=== PATIENT | male | born 1990 | race African-American/Black ===

== ENCOUNTER 2020-11-21 10:12 | Outpatient (CLI) | payer BC, SELFPAY ==
[2020-11-21 11:02] LABS: Alanine Aminotransferase 14 U/L (4-50); Albumin Level 4.6 g/dL (3.5-5.1); Alkaline Phosphatase 39 U/L (38-126); Anion Gap 5 mmol/L (8-16); Aspartate Amino Transferase 27 U/L (17-59); Bilirubin,Total 1.5 mg/dL (0.2-1.3); Blood Urea Nitrogen 13 mg/dL (9-20); Calcium 9.5 mg/dL (8.4-10.2); Carbon Dioxide 32 mmol/L (22-30); Chloride 105 mmol/L (98-107); Cholesterol 204 mg/dL (0-200); Estimated Glomerular Filt Rate > 60; Glucose 95 mg/dL (75-110); HDL Direct 66 mg/dL; Potassium 5.1 mmol/L (3.4-5.0); Sodium 142 mmol/L (137-145); Triglycerides 76 mg/dL (<150)
[2020-11-21 11:13] LABS: LDL Cholesterol Direct 81 mg/dL
[2020-11-21 11:33] LABS: Thyroid Stimulating Hormone 0.987 uIU/mL (0.465-4.680)
[2020-11-25 00:49] LABS: Testosterone Total 607 ng/dL (250-1100)
== END 2020-11-21 10:13 | disposition home or self-care (01) ==
PROVIDERS: PCP Internal Medicine; Visit Provider Nurse Practitioner
DX: Z00.00 Encounter for general adult medical examination without abnormal findings (principal)
CPT/HCPCS: 36415; 80053; 80061; 84403; 84443

== ENCOUNTER 2020-12-27 07:39 | Outpatient (CLI) | payer BC, SELFPAY ==
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
== END 2020-12-27 07:40 ==
PROVIDERS: PCP Internal Medicine; Visit Provider Nurse Practitioner
DX: M25.519 Pain in unspecified shoulder (principal); M54.2 Cervicalgia
CPT/HCPCS: 72050